=== PATIENT | male | born 1950 | race Caucasian/White ===

== ENCOUNTER 2017-01-10 11:45 | Emergency (ER) | payer MEDICARE, MEDICAID ==
[~2017-01-10] VITALS: Ht 182.9 cm; Wt 90.9 kg
[2017-01-10 11:51] VITALS: BP 155/75; PULSE 52; RESP 20; O2SAT 100
--- NOTE | 2017-01-10 11:51 | ED.REPORT ---
HPI-General Illness Date of Service Jan 10, 2017 ED Provider: Billy Baez DO The patient is a 66 year old prediabetic male, who was brought to the emergency department by EMS for multiple concerns. This morning the patient experienced bilateral hand numbness, and "coldness," and pain, nasal tingling, and an upset stomach. At this time he still complains of hand numbness and tingling. The patient was recently told that he was prediabetic, went on a diet, and has lost a total of 20 lbs. He denies focal weakness, severe headache, dizziness, lightheadedness, chest pain, palpitations, syncope, presyncope, or shortness of breath. The patient is a wandering historian and is unable to provide a specific history. Nursing Notes Stated Complaint: WEAKNESS Chief Complaint: General Complaint Nursing Notes Reviewed: Yes Scheduled PRN Aspirin (Aspirin) 325 Mg Tablet 325 MG PO PRN For Chest Pain General Time Seen by MD: 11:49 Chief Complaint Multip medical complaints Hx Obtained From: Patient, EMS Arrived By: Ambulance Sudden in Onset?: No Onset Occurred: 5 - 8 hours ago Symptom Duration: Since onset Location: : Hand left: Hand right Quality: Painful Severity: Current: Mild Severity: Maximum: Moderate Recent Healthcare: No recent hospitalization, Recent doctor visit Similar Sx Previous: No Past Medical History Past Medical History Pre diabetic Family History Noncontributory Smoking History Unknown if Ever Smoker Social History Other Social History: Local resident Ambulatory Status Independent Review of Systems Full Review of Systems Constitutional: Reports: Recent wt loss Respiratory: Denies: Shortness of breath Cardiovascular: Denies: Chest pain, Palpitations GI: Reports: Abdominal pain Musculoskeletal: Reports: Extremity pain Neurologic: Reports: Numbness, Denies: Dizziness, Focal weakness, Headache, Lightheaded Complete sys rev & neg: except as marked. Physical Exam Vital Signs Vital Signs Date Time Temp Pulse Resp B/P Pulse Ox O2 Delivery O2 Flow Rate FiO2 01/10/17 14:51 36.5 51 14 144/68 98 Room Air 01/10/17 12:29 48 20 132/62 98 Room Air 01/10/17 11:51 36.8 52 20 155/75 100 Room Air Initial VS: Reviewed Head / Eyes: Atraumatic, Normocephalic, PERRL ENT: Mucous membranes moist, Conjunctiva normal, No scleral icterus Neck: Supple, Non-tender, Full range of motion Respiratory: Breath sounds normal, Clear to auscultation, No respiratory distress Abdomen / GI: Soft, Non-tender, No guarding, No rebound, No distention Lymphatic: No lymphadenopathy Extremities: Vascular intact, Neuro intact, No swelling, No tenderness Skin: Warm, Dry, No cyanosis Psychiatric: Mood/affect normal, Behavior normal, Normal thought content General/Constitutional: Awake, Alert, No acute distress, Well appearing, Cooperative Cardiovascular: Regular rhythm, Heart sounds NL, No gallop, No murmurs, No rubs , Cap refill not delayed, Peripheral circulation NL, Pulses = bilaterally, No gross BP differential Heart Rate / Rhythm: Positive: Bradycardia Neurologic: Oriented X3, Speech NL, No motor deficits, No sensory deficits, CN II - XII intact, Cerebellar NL, Memory NL Interpretation & Diagnostics Lab Results Interpretation Result Diagram: 01/10/17 1150 01/10/17 1150 Test 01/10/17 11:50 01/10/17 11:55 White Blood Count 5.5th/mm3 (3.8-10.1) Red Blood Count 4.81mil/mm3 (4.40-5.80) Hemoglobin 14.3g/dL (13.8-17.2) Hematocrit 43.3% (41.0-50.0) Mean Corpuscular Volume 90.0fL (81-100) Mean Corpuscular Hemoglobin 29.7pg (27.0-35.0) Mean Corpuscular Hemoglobin Concent 33.0% (32.0-37.0) Red Cell Distribution Width 12.7% (12.3-15.4) Platelet Count 267bil/L (150-400) Neutrophils (%) (Auto) 61.7% (40-74) Lymphocytes (%) (Auto) 27.4% (14-46) Monocytes (%) (Auto) 7.3% (4-12) Eosinophils (%) (Auto) 2.9% (0-5) Basophils (%) (Auto) 0.7% (0-3) Sodium Level 141mEq/L (134-144) Potassium Level 4.3mEq/L (3.5-5.2) Chloride Level 101mEq/L (97-108) Carbon Dioxide Level 25mmol/L (18-29) Blood Urea Nitrogen 12mg/dL (8-27) Creatinine 0.62mg/dL (0.76-1.27) Estimat Glomerular Filtration Rate 138mL/min (>59) Glucose Level 115mg/dL (60-99) Calcium Level 9.2mg/dL (8.5-10.1) Magnesium Level 2.1mg/dL (1.6-2.6) Total Bilirubin 0.3mg/dL (0.0-1.2) Aspartate Amino Transf (AST/SGOT) 18U/L (0-50) Alanine Aminotransferase (ALT/SGPT) 26U/L (0-44) Alkaline Phosphatase 74U/L (25-160) Troponin T < 0.010ug/L (0.0-0.011) Total Protein 7.0g/dL (6.4-8.4) Albumin 4.3g/dL (3.4-5.0) Lipase 17U/L (13-60) Hold Purple Top Tube Received (Received) Hold Blue Top Tube Received (Received) Hold [place] Top Tube Received (Received) ECG Interpretation ECG Interpretation: Sinus bradycardia with a rate of 47 Time: 12:30 Interpreted by: ED physician X-Ray Chest Interpretation Chest Xray Interpretation: IMPRESSION: 1. No acute cardiopulmonary disease. Dictated by: Abdi Linton M.D. on 01/10/2017 at 13:25 Interpretation / Wet Read by: Interpret - Radiologist CT Abd / Pelvis Interpretation IMPRESSION: 1. No definite acute intra-abdominal abnormality. 2. Small appendicolith without evidence of acute appendicitis. 3. Small 4 mm left lower lobe pulmonary nodule. If patient is at high risk for malignancy, a follow up CT may be performed in 12 months to demonstrate stability. 4. Nephrolithiasis with multiple bilateral nonobstructing renal stones as described Dictated by: Abdi Linton M.D. on 01/10/2017 at 13:47 Interpretation / Wet Read by: Interpret - Radiologist Re-Eval/Medical Decision Med Decision/Clinical Course Patient has a modest bradycardia of unclear significance. It does not seem to correlate with syncopal or presyncopal symptoms, the patient has ambulated around the department without event. He has some minor peripheral neurologic complaints that are not reproducible on an objective physical exam. I do not think that subarachnoid hemorrhage or seizure or stroke seen likely. CT scan shows some incidental nonspecific findings, electrolytes and other laboratory studies are unremarkable. Patient is feeling better and is stable for discharge. We did discuss this at length that he should be followed up very closely with his primary care Will need outpatient cardiac workup which would likely include a Holter monitor and stress test. May benefit from an outpatient MRI. We did discuss return and follow-up precautions. Source of Hx: Old records Time of Eval: 13:38 Re-Evaluation/Progress Note: The patient was up and walking around. He feels good. Time of Eval: 13:58 Re-Evaluation/Progress Note: Rechecked the patient. Discussed workup results, diagnosis, and plan for discharge. All questions were addressed. Counseled Regarding: Diagnosis, Lab results, Need for follow-up, When/why to return to ED Discharge & Departure Primary Impression: Abdominal pain Abdominal location: unspecified location Qualified Code: R10.9 - Unspecified abdominal pain Additional Impressions: Paresthesia of upper extremity Pulmonary nodule Disposition: Home Discharge Condition All VS Reviewed: Yes Condition: Stable Patient Instructions: Abdominal Pain (ED) Additional Instructions: Thank you for entrusting us with your care today. You workup today is reassuring. There is no evidence of anything acutely dangerous at this time. There was a pulmonary nodule seen on the CT today. This should be discussed with your regular doctor. Followup with your regular doctor next week regarding your bradycardia.. Return to the emergency department for increased pain in the abdomen, vomiting, fever, syncope, or any other new or concerning symptoms. Referrals: Iris Peterson (PCP) Scribe Attestation Portions of this note were transcribed by Tricia Pinzon. I, Dr. Baez personally performed the history, physical exam and medical decision-making; I reviewed and confirmed the accuracy of the information in the transcribed note. Signed by: Rita Munoz, 01/10/2017 at 1440. copies to: Iris Peterson Timothy S DO Jan 10, 2017 11:51 Tricia Pinzon Jan 10, 2017 11:57
[2017-01-10] MEDS ORDERED: 0.9% Sodium Chloride 1,000 ML IV ONE (12:23)
[2017-01-10] MEDS ORDERED: Ondansetron 2 mg/mL 2 mL Inj IVPUSH PRN (12:25)
[2017-01-10 12:29] VITALS: BP 132/62; PULSE 48; RESP 20; O2SAT 98
[2017-01-10 12:35] LABS: BASOPHILS % (AUTO) 0.7 % (0-3); EOSINOPHILS % (AUTO) 2.9 % (0-5); MONOCYTES % (AUTO) 7.3 % (4-12); Mean Corpuscular Hemoglobin 29.7 pg (27.0-35.0); NEUTROPHILS % (AUTO) 61.7 % (40-74); Platelet Count 267 bil/L (150-400)
[2017-01-10] MEDS ORDERED: ASPI325T32 PO (12:44)
[2017-01-10 12:57] LABS: Lipase 17 U/L (13-60); Magnesium 2.1 mg/dL (1.6-2.6)
[2017-01-10 13:08] LABS: TROPONIN T < 0.010 ug/L (0.0-0.011)
--- NOTE | 2017-01-10 13:28 | DRSVH ---
PROCEDURE: X-RAY CHEST ONE VIEW, PORTABLE ([id number]) INDICATIONS: bradycardia TECHNIQUE: One view of the chest was acquired. COMPARISON: None. FINDINGS: Surgical changes and devices: None. Lungs and pleura: No pleural effusions or pneumothorax. Lungs are clear. Mediastinum: Mediastinal contours appear normal. Heart size is normal. Bones and chest wall: No suspicious bony lesions. Overlying soft tissues appear unremarkable. IMPRESSION: 1. No acute cardiopulmonary disease. Dictated by: Abdi Linton M.D. on 01/10/2017 at 13:25 Approved by: Abdi Linton M.D. on 01/10/2017 at 13:26
--- NOTE | 2017-01-10 13:54 | DRSVH ---
PROCEDURE: CT ABDOMEN AND PELVIS WITH CONTRAST ([id number]) INDICATIONS: Abdominal pain TECHNIQUE: After the administration of oral and intravenous contrast, 5 mm thick sections acquired from the diap hragms to the symphysis. 5 mm thick coronal and sagittal reformats were performed. For radiation do se reduction, the following was used: automated exposure control, adjustment of mA and/or kV accordi ng to patient size. COMPARISON: None. FINDINGS: Image quality: Excellent. ABDOMEN: Lung bases: There is a small 4 mm left lower lobe pulmonary nodule. Heart size is normal. Solid organs: There are a few scattered small low density foci in demonstrated throughout the liver w hich are too small to characterize but statistically likely represent cysts. The spleen is normal in size. Gallbladder appears within normal limits without calcified gallstones. Biliary system is non -dilated. Pancreas enhances normally without peripancreatic fluid or fat stranding. No adrenal nodu les. There are bilateral nonobstructing renal stones, 3-4 on the right and 2 nonobstructing left sergio al stones. These measure up to approximately 3 mm in the right kidney and 5 mm in the left kidney. There are a few small left renal cysts. Peritoneum and bowel: Stomach, small bowel, and colon loops are normal in caliber and wall thickness . The appendix demonstrates a small appendicolith but no evidence of acute appendicitis. No free fl uid or air. Nodes and vessels: No retroperitoneal or mesenteric adenopathy. Aorta and inferior vena cava are no rmal in caliber. Miscellaneous: No ventral hernias. PELVIS: Genitourinary: Bladder wall thickness is normal. Miscellaneous: No inguinal hernias or adenopathy. Bones: No suspicious bony lesions. No vertebral body compression fractures. IMPRESSION: 1. No definite acute intra-abdominal abnormality. 2. Small appendicolith without evidence of acute appendicitis. 3. Small 4 mm left lower lobe pulmonary nodule. If patient is at high risk for malignancy, a follow up CT may be performed in 12 months to demonstrate stability. 4. Nephrolithiasis with multiple bilateral nonobstructing renal stones as described Dictated by: Abdi Linton M.D. on 01/10/2017 at 13:47 Approved by: Abdi Linton M.D. on 01/10/2017 at 13:52
[2017-01-10 14:51] VITALS: BP 144/68; PULSE 51; RESP 14; O2SAT 98
== END 2017-01-10 15:02 | disposition home or self-care (01) ==
LOC: EDBD 11:45 → EDUNIT# 11:45 → SED 11:45
DX: R10.9 Unspecified abdominal pain (principal); R20.0 Anesthesia of skin; R91.1 Solitary pulmonary nodule; Z79.82 Long term (current) use of aspirin
CPT/HCPCS: 36415; 71010; 74177; 80053; 81002; 83690; 83735; 84484; 85025; 93005; 96360; 99285; J7030; Q9967